=== PATIENT | female | born 1990 | race Caucasian/White ===

== ENCOUNTER 2016-11-25 21:27 | Emergency (ER) | payer MEDICAID, OTHER ==
[~2016-11-25] VITALS: Ht 160 cm; Wt 50.0 kg
[2016-11-25 21:43] VITALS: Ht 160 cm; Wt 50.0 kg
[2016-11-26] MEDS ORDERED: PRENAT PO (01:31)
--- NOTE | 2016-11-26 01:32 | ERD ---
ER Documentation Chief Complaint Date/Time DATE: 11/26/16 TIME: 01:27 Chief Complaint 8 wks , vaginal bleediing 4 days ago HPI 26-year-old female presents here in emergency department for complaints of vaginal bleeding for 4 days. Patient is approximately 8 weeks . 2 para 1 0. Last menstruation was 09/22/2016. Patient describes the bleeding as spotting. Patient is complaining of pelvic pain and cramping pain, for/10 scale, accompanying the other symptoms. Patient denies any flank pain. Patient denies hematuria or dysuria. Patient denies any fever or chills. ROS All systems reviewed and are negative except as per history of present illness. Medications Home Meds Reported Medications Multivit/Min/Fol Ac/Iron/Pren* ( S*) Unknown Strength Tab, PO DAILY, TAB 11/26/16 Allergies Allergies: Coded Allergies: No Known Allergy (Unverified , 11/25/16) PMhx/Soc Medical and Surgical Hx: pt denies Medical Hx, pt denies Surgical Hx History of Surgery: Yes (c section) Anesthesia Reaction: No Hx Neurological Disorder: No Hx Respiratory Disorders: No Hx Cardiac Disorders: No Hx Psychiatric Problems: No Hx Miscellaneous Medical Probl: No Hx Alcohol Use: No Hx Substance Use: No Hx Tobacco Use: No Smoking Status: Never smoker FmHx Family History: No coronary disease, No diabetes, No other Physical Exam Vitals Vital Signs Date Time Temp Pulse Resp B/P Pulse Ox O2 Delivery O2 Flow Rate FiO2 11/25/16 21:43 97.3 70 20 122/80 100 Physical Exam GENERAL: The patient is well developed and appropriate for usual state of health, in no apparent distress. CHEST: Clear to auscultation bilaterally. There are no rales, wheezes or rhonchi. HEART: Regular rate and rhythm. No murmurs, clicks, rubs or gallops. No S3 or S4. ABDOMEN: Soft, nontender and nondistended. Good bowel sounds. No rebound or guarding. No gross peritonitis. No gross organomegaly or masses. No Rocha sign or McBurney point tenderness. BACK: No midline or flank tenderness. EXTREMITIES: Equal pulses bilaterally. There is no peripheral clubbing, cyanosis or edema. No focal swelling or erythema. Full range of motion. Grossly neurovascularly intact. NEURO: Alert and oriented. Cranial nerves 2-12 intact. Motor strength in all 4 extremities with 5/5 strength. Sensation grossly intact. Normal speech and gait. SKIN: There is no apparent rash or petechia. The skin is warm and dry. HEMATOLOGIC AND LYMPHATIC: There is no evidence of excessive bruising or lymphedema. No gross cervical, axillary, or inguinal lymphadenopathy. VAGINAL: Small amount of blood in the vaginal vault, cervical os is closed. No adnexal tenderness or cervical motion tenderness noted. Result Diagram: 11/26/16 0158 Results 24 hrs Laboratory Tests Test 11/26/16 01:58 Basophils # 0.010^3/ul Basophils % 0.5% Beta HCG, Quantitative 901398.0mIU/ml Eosinophils # 0.110^3/ul Eosinophils % 0.9% Hematocrit 37.3% Hemoglobin 12.7g/dl Lymphocytes # 2.810^3/ul Lymphocytes % 36.1% Mean Corpuscular Hemoglobin 31.5pg Mean Corpuscular Hemoglobin Concent 34.0g/dl Mean Corpuscular Volume 92.6fl Mean Platelet Volume 8.7fl Monocytes # 0.810^3/ul Monocytes % 10.2% Neutrophils # 4.110^3/ul Neutrophils % 52.3% Nucleated Red Blood Cells # 0.010^3/ul Nucleated Red Blood Cells % 0.0/100WBC Platelet Count 40343^3/UL Red Blood Count 4.0210^6/ul Red Cell Distribution Width 12.7% Urine Bilirubin NEGATIVE Urine Clarity CLEAR Urine Color LT. YELLOW Urine Glucose NEGATIVE% Urine Hemoglobin NEGATIVE Urine Ketones NEGATIVE Urine Leukocyte Esterase NEGATIVE Urine Nitrite NEGATIVE Urine Specific [place] 1.025 Urine Total Protein NEGATIVE Urine Urobilinogen 0.2 E.U./dL Urine pH 6.0 White Blood Count 7.910^3/ul PROCEDURE: ULTRASOUND OBSTETRICAL CLINICAL INDICATION: 26-year-old female with spotting. TECHNIQUE: Multiple sonographic images of the pelvis were obtained. The images were reviewed on a PACS workstation. COMPARISON: None. FINDINGS: There is a single intrauterine gestation. There is a small subchorionic hemorrhage. The mean sac diameter is 2.72 cm. There is a pole present with a crown-rump length of 1.71 cm. This yields an estimated gestational age of 8 weeks and 0 days. The estimated date of delivery July 08, 2017. Cardiac activity is present at 161 beats per minute. There is no evidence for free fluid. The right ovary has a normal echotexture and measures 2.7 x 1.3 x 1.7 cm. There is flow within the right ovary. The left ovary was not visualized. No adnexal masses are noted. IMPRESSION: 1. Single viable intrauterine gestation of approximately 8 weeks 0 days with small subchorionic hemorrhage. The estimated date of delivery is July 08, 2017. 2. The left ovary was not visualized. .Ari Jade MD, Date Time Electronically viewed and signed by .Ari Jade MD, on 11/26/2016 02:48 .M/ CC: ARTIE DOTSON [facility] Procedures/MDM Medical Decision Making: Patients vaginal bleeding is most likely consistent of possible threatened . Patient does not show any evidence of hypovolemic shock. Patients hemoglobin and hematocrit is stable. There is low suspicion for ectopic . RJ results show viable 8 week with small subchorionic bleed which may be causing the bleeding. BetaHCG Quantitative is appropriate for The patient is Rh+, does not need RhoGAM this time. There is no signs of symptoms of dehydration. There is low suspicion for sepsis. Patient appears well and is hemodynamically stable. Disposition: Home. Condition: Stable Instructions: Patient is advised to do bed rest, avoid heavy lifting, and avoid having sex until cleared by OB doctor. Patient is advised to follow up with OB doctor or here at the ER in 48 hours for reevaluation of symptoms, repeat beta HCG quantitative and ultrasound. Patient is advised that is symptoms are worst, severe bleeding, dizziness, severe abdominal pain, fever, worst signs and symptoms to return to the emergency department immediately. Departure Diagnosis: Primary Impression: Threatened Additional Impressions: Subchorionic hemorrhage Fetus number: single or unspecified fetus Trimester: unspecified trimester Qualified Code: O41.8X90 - Subchorionic hemorrhage, unspecified trimester, not applicable or unspecified fetus Intrauterine Condition: Stable Patient Instructions: Possible Miscarriage (Threatened ) Additional Instructions: Patient is advised to do bed rest, avoid heavy lifting, and avoid having sex until cleared by OB doctor. Patient is advised to follow up with OB doctor or here at the ER in 48 hours for reevaluation of symptoms, repeat beta HCG quantitative and ultrasound. Patient is advised that is symptoms are worst, severe bleeding, dizziness, severe abdominal pain, fever, worst signs and symptoms to return to the emergency department immediately. ARTIE DOTSON NP Nov 26, 2016 01:32
[2016-11-26 02:27] LABS: ADD UMIC NO; URINE BILIRUBIN (Dip) NEGATIVE (NEGATIVE); URINE BLOOD (Dip) NEGATIVE (NEGATIVE); URINE COLOR LT. YELLOW (YELLOW); URINE GLUCOSE (Dip) NEGATIVE (NEGATIVE); URINE KETONES (Dip) NEGATIVE (NEGATIVE); URINE LEUKOCYTE ESTERASE (Dip) NEGATIVE (NEGATIVE); URINE NITRITE (Dip) NEGATIVE (NEGATIVE); URINE TOTAL PROTEIN (Dip) NEGATIVE (NEGATIVE); URINE UROBILINOGEN (Dip) 0.2 E.U./dL (0.1-1.0)
[2016-11-26 02:28] LABS: BASOPHILS % 0.5 % (0.0-2.0); EOSINOPHILS # 0.1 10^3/ul (0.0-0.5); EOSINOPHILS % 0.9 % (0.0-7.0); HEMATOCRIT 37.3 % (37.0-47.0); HEMOGLOBIN 12.7 g/dl (12.0-16.0); LYMPHOCYTES # 2.8 10^3/ul (0.8-2.9); LYMPHOCYTES % 36.1 % (15.0-51.0); MEAN CORPUSCULAR HEMOGLOBIN 31.5 pg (29.0-33.0); MEAN CORPUSCULAR VOLUME 92.6 fl (82.0-101.0); MEAN PLATELET VOLUME 8.7 fl (7.4-10.4); MONOCYTE # 0.8 10^3/ul (0.3-0.9); MONOCYTES % 10.2 % (0.0-11.0); NEUTROPHIL # 4.1 10^3/ul (1.6-7.5); NEUTROPHILS % 52.3 % (39.0-77.0); PLATELET COUNT 229 10^3/UL (140-440); RED BLOOD COUNT 4.02 10^6/ul (4.20-5.40); RED CELL DISTRIBUTION WIDTH 12.7 % (11.5-14.5); UNCORRECTED WBC 7.9 10^3/ul (4.8-10.8); WHITE BLOOD COUNT 7.9 10^3/ul (4.8-10.8)
[2016-11-26 02:31] LABS: CONDITION 1
--- NOTE | 2016-11-26 02:48 | RADRPT ---
PROCEDURE: ULTRASOUND OBSTETRICAL CLINICAL INDICATION: 26-year-old female with spotting. TECHNIQUE: Multiple sonographic images of the pelvis were obtained. The images were reviewed on a PACS workstation. COMPARISON: None. FINDINGS: There is a single intrauterine gestation. There is a small subchorionic hemorrhage. The mean sac zane meter is 2.72 cm. There is a pole present with a crown-rump length of 1.71 cm. This yields an estimated gestational age of 8 weeks and 0 days. The estimated date of delivery July 08, 2017. Cardiac activity is present at 161 beats per minute. There is no evidence for free fluid. The righ t ovary has a normal echotexture and measures 2.7 x 1.3 x 1.7 cm. There is flow within the right ova ry. The left ovary was not visualized. No adnexal masses are noted. IMPRESSION: 1. Single viable intrauterine gestation of approximately 8 weeks 0 days with small subchorionic hem orrhage. The estimated date of delivery is July 08, 2017. 2. The left ovary was not visualized. .Ari Jade MD, MD Date Time Electronically viewed and signed by .Ari Jade MD, on 11/26/2016 02:48 .M/
[2016-11-26 04:23] VITALS: BP 92/55; PULSE 69; RESP 18; TEMP 98.4
== END 2016-11-26 04:10 | disposition home or self-care (01) ==
LOC: FTE 21:27
DX: O20.0 Threatened abortion (principal); O41.8X10 Other specified disorders of amniotic fluid and membranes, first trimester, not applicable or unspecified
CPT/HCPCS: 36415; 76801; 81003; 84702; 85025; 86900; 86901